=== PATIENT | female | born 1965 | race Caucasian/White ===

== ENCOUNTER 2018-05-08 20:39 | Emergency (ER) | payer OTHER ==
[~2018-05-08] VITALS: Ht 165.1 cm; Wt 78.5 kg
[2018-05-08 20:46] VITALS: BP 139/95; Ht 165.1 cm; Wt 78.5 kg
== END 2018-05-08 22:54 | disposition home or self-care (01) ==
LOC: ED 20:39
DX: G89.29 Other chronic pain (principal); M25.561 Pain in right knee; M25.562 Pain in left knee; I10 Essential (primary) hypertension
CPT/HCPCS: J1885